=== PATIENT | male | born 1950 | race Caucasian/White ===

== ENCOUNTER 2016-09-17 09:33 | Day surgery (SDC) | payer BC, MEDICARE ==
[2016-09-06 09:17] VITALS: BMI 30.5
[~2016-09-17 09:33] MED LIST: LACTATED RINGERS 1,000 ML IV SCH
[2016-09-17 09:47] VITALS: RESP 16; TEMP 98.5
[2016-09-17] MEDS ORDERED: LIDOCAINE 1% 20 ML VIAL (10MG/ML) FOR IV START INTRADERMA ONE (09:58)
[2016-09-17] MEDS ORDERED: PROPOFOL 10 MG/ML 20 ML VIAL IV ONE (10:48)
--- NOTE | 2016-09-17 11:09 | P.PCN ---
Date of Procedure: 09/17/16 Procedure(s) Performed: BRIEF HISTORY: Patient is a 65-year-old pleasant white male, scheduled for an elective colonoscopy as a part of screening for colorectal neoplasia. PROCEDURE PERFORMED: Colonoscopy with biopsy. PREOPERATIVE DIAGNOSIS: Screening for colon cancer. IV sedation per Anesthesia. PROCEDURE: After informed consent was obtained, the patient, was brought into the endoscopy unit. IV sedation was administered by Anesthesia under continuous monitoring. Digital rectal examination was normal. Initially the Olympus CF- 160 flexible video colonoscope was then inserted in the rectum, gradually advanced into the cecum without any difficulty. Careful examination was performed as the scope was gradually being withdrawn. Ileocecal valve and the appendiceal orifice were visualized and appeared normal. Prep was excellent. Mucosa of the cecum, ascending colon, transverse colon, descending colon, sigmoid colon, and rectum appeared normal. In the proximal rectum there was a part of that was removed by biopsy. Scattered sigmoid diverticulosis seen. Retroflexion was performed in the rectum and no lesions were seen. The patient tolerated the procedure well. IMPRESSION: 5 mm proximal rectal polyp status post removal by biopsy. Sigmoid diverticulosis RECOMMENDATIONS: Findings of this examination were discussed with the patient as well as his family. he was advised to follow with the biopsy results. If the biopsy shows a tubular adenoma he can have a repeat colonoscopy in 5 years.
[2016-09-17 11:43] VITALS: BP 138/80; PULSE 80
== END 2016-09-17 11:53 | disposition home or self-care (01) ==
LOC: ORWHC2ENDO 09:33
PROVIDERS: ATTEND Internal Medicine Gastroenterology
DX: Z12.11 Encounter for screening for malignant neoplasm of colon (principal); K57.30 Diverticulosis of large intestine without perforation or abscess without bleeding; K62.1 Rectal polyp; I10 Essential (primary) hypertension; E78.5 Hyperlipidemia, unspecified; Z86.711 Personal history of pulmonary embolism; M54.10 Radiculopathy, site unspecified; K21.9 Gastro-esophageal reflux disease without esophagitis; Z79.82 Long term (current) use of aspirin; Z79.02 Long term (current) use of antithrombotics/antiplatelets; Z79.891 Long term (current) use of opiate analgesic; Z79.899 Other long term (current) drug therapy; Z88.1 Allergy status to other antibiotic agents; Z88.0 Allergy status to penicillin; Z88.2 Allergy status to sulfonamides; Z87.891 Personal history of nicotine dependence
CPT/HCPCS: 88305; 45380; J2704

== ENCOUNTER 2021-05-05 12:11 | Inpatient (IN) | payer MEDICARE, OTHER ==
[2021-05-05] MEDS ORDERED: CEFEPIME 1 GM in SODIUM CHLORIDE 0.9% 50 ML IVPB STA (14:33)
[2021-05-05] MEDS ORDERED: VANCOMYCIN IV PER PHARMACY 1 EACH MISC MISCELLANE PRN (14:33)
[2021-05-05] MEDS: SODIUM CHLORIDE 0.9% 1,000 ML IV STA (14:55)
[2021-05-05 14:58] LABS: Basophils % (A) 1 %; Eosinophils # (A) 0.1 k/uL (0-0.7); Eosinophils % (A) 1 %; HCT 39.6 % (39.0-53.0); HGB 13.3 gm/dL (13.0-17.5); Lymphocytes # (A) 1.8 k/uL (1.0-4.8); Lymphocytes % (A) 23 %; MCH 31.4 pg (25.0-35.0); MCHC 33.6 g/dL (31.0-37.0); MCV 93.4 fL (80.0-100.0); Mean Platelet Volume 7.3; Monocytes # (A) 0.4 k/uL (0-1.0); Monocytes % (A) 5 %; Neutrophils # (A) 5.6 k/uL (1.3-7.7); Neutrophils % (A) 70 %; Platelet Count 401 k/uL (150-450); RBC 4.25 m/uL (4.30-5.90); RDW 13.3 % (11.5-15.5)
[2021-05-05 15:10] LABS: African American GFR (CKD) >90 (>60 ml/min/1.73 sqM); Anion Gap 9 mmol/L; Blood Urea Nitrogen 22 mg/dL (9-20); Carbon Dioxide 22 mmol/L (22-30); Chloride 109 mmol/L (98-107); Glucose 120 mg/dL (74-99); Non-African American GFR(CKD) >90 (>60 ml/min/1.73 sqM); Potassium 4.1 mmol/L (3.5-5.1); Sodium 140 mmol/L (137-145)
[2021-05-05] MEDS: VANCOMYCIN 1,750 MG in SODIUM CHLORIDE 0.9% 500 ML 500 ML IVPB STA ×2 (15:25→18:05)
--- NOTE | 2021-05-05 15:44 | XR ---
EXAMINATION TYPE: XR foot complete RT DATE OF EXAM: 05/05/2021 COMPARISON: Correlation old MRI 04/20/2013 HISTORY: 70-year-old male for pain, rule out infection TECHNIQUE: 3 views FINDINGS: There is chronic bone loss of the posterior to mid calcaneus and underlying extensive degen erative change within the hindfoot. Degenerative change at the tibiotalar joint. Generalized soft tis laura swelling throughout including the forefoot and midfoot were severe swelling is present. Surgical clips posterior aspect of the distal leg. No lytic destruction identified in the forefoot and midfoot . IMPRESSION: 1. Loss of the posterior to mid calcaneus appears largely chronic and was present back on the patient 's 04/20/2013 MRI. Further clinical correlation will be needed for osteomyelitis here especially in t he setting of a soft tissue ulcer. No acute appearing efrain lytic destruction is seen here. 2. Severe forefoot and midfoot soft tissue swelling could represent cellulitis. 3. If persistent clinical concern, consider MRI.
--- NOTE | 2021-05-05 15:54 | ED ---
General Adult HPI - General Chief complaint: Extremity Problem,Nontraumatic Stated complaint: infected foot/leg Time Seen by Provider: 05/05/21 14:25 Source: patient, RN notes reviewed Mode of arrival: wheelchair Limitations: no limitations - History of Present Illness Initial comments: Patient 70-year-old male presented to the emergency room today with chief complaint of infection to the right foot. Patient does admit that he's had a chronic infection to this area after an injury over 30 years ago. Patient does admit that more recently a new infection started. He is been followed the family doctor. Was placed on Keflex and doxycycline. Patient states that he follow-up at the family physician today was directed here to the emergency room for IV antibiotics as seems to be getting worse. Patient denies any other complaints or any other symptoms at this time. - Related Data Home Medications Medication Instructions Recorded Confirmed Atorvastatin [Lipitor] 20 mg PO MOWEFR 09/20/13 11/29/16 Multivitamin [Multivitamins] 1 each PO DAILY 09/20/13 11/29/16 amLODIPine BESYLATE [Norvasc] 10 mg PO DAILY 09/20/13 11/29/16 Aspirin 325 mg PO DAILY 12/05/14 11/29/16 DULoxetine HCL [Cymbalta] 60 mg PO DAILY 12/05/14 11/29/16 lisinopriL [Prinivil] 20 mg PO DAILY 12/05/14 11/29/16 Pantoprazole Sodium 40 mg PO DAILY 03/05/16 11/29/16 Gabapentin [Neurontin] 300 mg PO DAILY 09/06/16 11/29/16 Previous Rx's Medication Instructions Recorded Clopidogrel [Plavix] 75 mg PO DAILY #30 tab 12/11/14 Allergies Allergy/AdvReac Type Severity Reaction Status Date / Time Penicillins Allergy Rash/Hives Verified 05/05/21 13:08 sulfamethoxazole Allergy PALPITATION Verified 05/05/21 13:08 [From Bactrim] S trimethoprim [From Bactrim] Allergy PALPITATION Verified 05/05/21 13:08 S Review of Systems ROS Statement: Those systems with pertinent positive or pertinent negative responses have been documented in the HPI. ROS Other: All systems not noted in ROS Statement are negative. Past Medical History Past Medical History: Cancer, Deep Vein Thrombosis (DVT), GERD/Reflux, Hyperlipidemia, Hypertension, Pulmonary Embolus (PE), Skin Disorder Additional Past Medical History / Comment(s): WOUND ON RT HEEL, neuropathy rt lower leg, basal cell skin cancer removed from back, hiatal hernia. chronic constipation, History of Any Multi-Drug Resistant Organisms: None Reported Past Surgical History: Back Surgery, Heart Catheterization, Orthopedic Surgery Additional Past Surgical History / Comment(s): back sx-fusion and selena placement/later removed, stent to rt groin, avelino foot sx and rt foot had problem with bone infection(at heel area) flap graft was done(graft site avelino thighs) was rejected then 3RD graft (from rt calf) was successful. rt knee cap sx, stent to left subclavian Past Anesthesia/Blood Transfusion Reactions: No Reported Reaction Additional Past Anesthesia/Blood Transfusion Reaction / Comment(s): . Past Psychological History: No Psychological Hx Reported Smoking Status: Former smoker Past Alcohol Use History: Occasional Past Drug Use History: Marijuana - Past Family History Mother Family Medical History: Osteoarthritis (OA) Additional Family Medical History / Comment(s): BACK PROBLEMS, ALZHEIMER'S Father Family Medical History: Cancer, Coronary Artery Disease (CAD), Thyroid Disorder General Exam - General Exam Comments Initial Comments: General: The patient is awake and alert, in no distress, and does not appear acutely ill. Eye: There is normal conjunctiva bilaterally. No signs of icterus. Ears, nose, mouth and throat: There are moist mucous membranes and no oral lesions. Neck: The neck is supple, there is no tenderness or JVD. Cardiovascular: There is a regular rate and rhythm. No murmur, rub or gallop is appreciated. Respiratory: Lungs are clear to auscultation, respirations are non-labored, breath sounds are equal. No wheezes, stridor, rales, or rhonchi. Musculoskeletal: Normal ROM, no tenderness. Strength 5/5. Sensation intact. Pulses equal bilaterally 2+. Neurological: A&O x 3. CN II-XII intact, There are no obvious motor or sensory deficits. Coordination appears grossly intact. Speech is normal. Skin: Patient's wound was recently dressed at his office. Psychiatric: Cooperative, appropriate mood & affect, normal judgment. Limitations: no limitations Course Vital Signs 05/05/21 13:02 Temperature 98.4 F Pulse Rate 68 Respiratory 18 Rate Blood Pressure 126/73 O2 Sat by Pulse 98 Oximetry Medical Decision Making - Medical Decision Making Patient will be admitted to the hospital. He was started on cefepime, vancomycin here in emergency room. He still outpatient treatment. Case was discussed with attending physician Dr. Roth who will admit the patient. He recommends consult to infectious disease and bone scan. - Lab Data Result diagrams: 05/05/21 14:47 05/05/21 14:47 Lab Results 05/05/21 05/05/21 05/05/21 Range/Units 14:47 14:47 14:47 WBC 8.0 (3.8-10.6) k/uL RBC 4.25 L (4.30-5.90) m/uL Hgb 13.3 (13.0-17.5) gm/dL Hct 39.6 (39.0-53.0) % MCV 93.4 (80.0-100.0) fL MCH 31.4 (25.0-35.0) pg MCHC 33.6 (31.0-37.0) g/dL RDW 13.3 (11.5-15.5) % Plt Count 401 (150-450) k/uL MPV 7.3 Neutrophils % 70 % Lymphocytes % 23 % Monocytes % 5 % Eosinophils % 1 % Basophils % 1 % Neutrophils # 5.6 (1.3-7.7) k/uL Lymphocytes # 1.8 (1.0-4.8) k/uL Monocytes # 0.4 (0-1.0) k/uL Eosinophils # 0.1 (0-0.7) k/uL Basophils # 0.0 (0-0.2) k/uL Sodium 140 (137-145) mmol/L Potassium 4.1 (3.5-5.1) mmol/L Chloride 109 H (98-107) mmol/L Carbon Dioxide 22 (22-30) mmol/L Anion Gap 9 mmol/L BUN 22 H (9-20) mg/dL Creatinine 0.83 (0.66-1.25) mg/dL Est GFR (CKD-EPI)AfAm >90 (>60 ml/min/1.73 sqM) Est GFR (CKD-EPI)NonAf >90 (>60 ml/min/1.73 sqM) Glucose 120 H (74-99) mg/dL Plasma Lactic Acid Julio C 1.2 (0.7-2.0) mmol/L Calcium 9.0 (8.4-10.2) mg/dL Disposition Clinical Impression: Cellulitis, Failure of outpatient treatment Disposition: ADMITTED IP TO THIS [facility] Condition: Stable Referrals: Vicky Singh III, MD [Primary Care Provider] - 1-2 days Time of Disposition: 16:00
[2021-05-05] MEDS ORDERED: SODIUM CHLORIDE 0.9% 1,000 ML IV ONE (16:00)
--- NOTE | 2021-05-05 16:56 | US ---
EXAMINATION TYPE: US venous doppler duplex LE RT DATE OF EXAM: 05/05/2021 4:33 PM COMPARISON: 07/13/2013 duplex CLINICAL HISTORY: DVT. Right leg pain, redness, and swelling SIDE PERFORMED: Right TECHNIQUE: The lower extremity deep venous system is examined utilizing real time linear array sonog tone with graded compression, doppler sonography and color-flow sonography. VESSELS IMAGED: Common Femoral Vein Deep Femoral Vein Greater Saphenous Vein * Femoral Vein Popliteal Vein Small Saphenous Vein * Proximal Calf Veins (* superficial vessels) Right Leg: Negative for DVT IMPRESSION: Grayscale, color doppler, spectral doppler imaging performed of the deep veins of the lo wer extremities. There is normal flow, compressibility, vascular waveforms.
[2021-05-05] MEDS ORDERED: HYDROcodone/APAP 5-325MG 1 EACH TAB PO PRN (17:36)
--- NOTE | 2021-05-05 18:28 | HP ---
HISTORY AND PHYSICAL DATE OF SERVICE: 05/05/2021. CHIEF COMPLAINT: Right foot wound and infection. HISTORY OF PRESENT ILLNESS: This 70-year-old gentleman with a past medical history of multiple medical problems, including DVT, history of GERD, hypertension, hyperlipidemia, history of pulmonary embolism, being followed by Dr. Singh in the outpatient setting, also had a nonhealing wound on the right heel. The patient apparently had a skin graft and other procedures in [facility], but currently the patient is also complaining of some discharge and pain from the foot for the last several days. Patient has been treated in the outpatient setting by Dr. Singh. The patient also was placed on Keflex and then subsequently doxycycline. Because of lack of improvement, Dr. Singh recommended that the patient be admitted. But because of lack of inpatient bedside, the patient was being routed to the emergency room at this time. There is no history of any fever, rigors or chills. No history of headache, loss of consciousness, seizures. The patient has some neuropathy on that leg. PAST MEDICAL HISTORY: History of DVT, history of GERD, hypertension, hyperlipidemia, history of pulmonary embolism, history of wound on the right history of back surgery, DJD. HOME MEDICATIONS: Prinivil, Norvasc, Protonix, multivitamins, Neurontin, Cymbalta, Plavix. Lipitor, aspirin. Doses are reviewed. ALLERGIES: PENICILLIN AND BACTRIM. FAMILY HISTORY: History of DJD, history of back problems and dementia. SOCIAL HISTORY: Previous history of smoking. No history of alcohol intake. REVIEW OF SYSTEMS: ENT: No diminished hearing. No diminished vision. CARDIOVASCULAR SYSTEM: No angina, palpitations. RESPIRATORY SYSTEM: No cough, hemoptysis. GI: As mentioned earlier. : No dysuria. NERVOUS SYSTEM: No numbness, weakness. ALLERGY/IMMUNOLOGY: No asthma or hay fever. MUSCULOSKELETAL: As mentioned earlier. HEMATOLOGY/ONCOLOGY: As mentioned earlier. ENDOCRINE: As mentioned earlier. CONSTITUTIONAL: As mentioned earlier. DERMATOLOGY: Negative. RHEUMATOLOGY: Negative. PSYCHIATRY: As mentioned earlier. PHYSICAL EXAMINATION: Patient is alert, oriented x3. Pulse is 70, blood pressure 124/47, respiration 18, temperature 98.4, pulse ox 98% on room air. HEENT: Conjunctivae normal. Oral mucosa moist. NECK: No jugular venous distention. No carotid bruit. No lymph node enlargement. CARDIOVASCULAR: S1, S2 muffled. RESPIRATION: Breath sounds diminished at the bases. No rhonchi. No crackles. ABDOMEN: Soft, non-tender. No mass palpable. LEGS: Right leg infection and some tenderness and some discharge also present in the right ankle area. NERVOUS SYSTEM: Diffusely weak. LYMPHATICS: No lymph node palpable in neck, axillae or groin. SKIN: No ulcer, rash, bleeding. JOINTS: No active deforming arthropathy. LABS: WBC 8, hemoglobin 13.3, sodium 142, potassium 4.1. ASSESSMENT: 1. Acute on chronic right foot infection with cellulitis with failure of outpatient treatment. 2. Rule out osteomyelitis. 3. History of chronic right foot wound and skin graft. 4. History of deep vein thrombosis. 5. Gastroesophageal reflux disease. 6. Hypertension. 7. Hyperlipidemia. 8. History of pulmonary embolism. 9. History of peripheral neuropathy. 10.History of hiatal hernia. 11.History of chronic constipation. 12.History of back surgery. 13.Remote history of nicotine dependence. 14.Obesity, body mass index of 31.5. RECOMMENDATIONS AND DISCUSSION: In this 70-year-old gentleman who presented with multiple complex medical issues, at this time we will monitor the patient closely, continue the current medications, continue symptomatic treatment. I would recommend empiric antibiotics, infectious disease evaluation. Obtain cultures. Bone scan. Otherwise, guarded prognosis because of multiple complex medical issues. Further recommendations to follow. A copy of this dictation is being forwarded to Dr. Singh, who is the primary physician. Will resume the home medications. Also DVT prophylaxis. Ultrasound of the leg also will be requested on the right side. MMODL / IJN: [id number] / [facility]
[2021-05-05] MEDS: ENOXAPARIN 40 MG/0.4 ML SYRINGE SQ SCH (22:49)
[2021-05-05] MEDS: PANTOPRAZOLE 40 MG TABLET PO SCH (22:49)
[2021-05-05] MEDS: HYDROmorphone 0.5 MG/0.5 ML SYRINGE IVP PRN (22:50)
[2021-05-06] MEDS: CEFEPIME 2 GM in SODIUM CHLORIDE 0.9% 100 ML IVPB SCH ×3 (00:48→18:32)
[2021-05-06] MEDS: SODIUM CHLORIDE 0.9% 1,000 ML IV STA (02:30)
[2021-05-06 04:27] LABS: African American GFR (CKD) >90 (>60 ml/min/1.73 sqM); Non-African American GFR(CKD) >90 (>60 ml/min/1.73 sqM)
[2021-05-06] MEDS: VANCOMYCIN 1,750 MG in SODIUM CHLORIDE 0.9% 500 ML 500 ML IVPB SCH ×2 (05:39→15:15)
[2021-05-06] MEDS: HYDROmorphone 0.5 MG/0.5 ML SYRINGE IVP PRN (05:40)
[2021-05-06] MEDS: PANTOPRAZOLE 40 MG TABLET PO SCH (09:10)
[2021-05-06] MEDS: ENOXAPARIN 40 MG/0.4 ML SYRINGE SQ SCH (10:36)
--- NOTE | 2021-05-06 14:10 | NM ---
EXAMINATION TYPE: NM bone 3 phase DATE OF EXAM: 05/06/2021 COMPARISON: X-ray 05/05/2021 HISTORY: Swelling Triple phase bone scintigraphy was performed following the injection of 23.1 mCi Tc 99m MDP. Immedia te images and 5.5 hours post injection images acquired. FINDINGS: There is increase of flow to the right ankle and foot. Particular attention to the soft tissues of th e right heel. Delayed images demonstrate blood flow overlying the right calcaneal region. Abnormal uptake is seen involving the ankles and feet and knees bilaterally. IMPRESSION: Findings are most typical of cellulitis. Correlate clinically.
[2021-05-06] MEDS ORDERED: HYDROmorphone 0.5 MG/0.5 ML SYRINGE IVP PRN (15:30)
[2021-05-06] MEDS: HYDROcodone/APAP 7.5-325MG 1 EACH TAB PO PRN (15:47)
--- NOTE | 2021-05-07 01:21 | P.PN ---
Subjective Progress Note Date: 05/06/21 This is a 70-year-old male who was recently admitted for right heel pain and increasing redness and drainage and is being closely monitored. Patient underwent bone scan today which is consistent with cellulitis. Patient is currently on IV cefepime and vancomycin and infectious disease is following. Patient continues to have right foot discomfort and will adjust pain medications. Patient preliminary cultures showing multiple organisms and will await finalized cultures. Patient denies any chest pain or shortness of breath. Patient is afebrile. Review of systems: Constitutional: No reports of fatigue, fever, or chills Cardiovascular: No reports of chest pain or palpitations Respiratory: No reports of shortness of breath or cough GI: No reports of nausea, vomiting, or diarrhea : No reports of dysuria or retention Neurovascular: No reports of weakness or numbness, reports right foot pain All medications have been reviewed Active Medications Hydrocodone Bitart/Acetaminophen (Hydrocodone/Apap 5-325mg 1 Each Tab) 1 each PO Q6HR PRN PRN Reason: Pain Last Admin: 05/06/21 09:10 Dose: 1 each Documented by: Enoxaparin Sodium (Enoxaparin 40 Mg/0.4 Ml Syringe) 40 mg SQ DAILY [facility] Last Admin: 05/06/21 10:36 Dose: 40 mg Documented by: Hydromorphone HCl (Hydromorphone 0.5 Mg/0.5 Ml Syringe) 0.5 mg IVP Q6HR PRN PRN Reason: Severe Pain Last Admin: 05/06/21 05:40 Dose: 0.5 mg Documented by: Vancomycin HCl 1,750 mg/ (Sodium Chloride) 500 mls @ 167 mls/hr IVPB Q12H [facility] Last Admin: 05/06/21 15:15 Dose: 167 mls/hr Documented by: Cefepime HCl 2 gm/ Sodium (Chloride) 100 mls @ 25 mls/hr IVPB Q8HR [facility] Last Admin: 05/06/21 09:11 Dose: 25 mls/hr Documented by: Miscellaneous Information (Vancomycin Trough Due 1 Each Misc) 0 each MISCELLANE DIRECTED ONE Stop: 05/07/21 14:01 Pantoprazole Sodium (Pantoprazole 40 Mg Tablet) 40 mg PO AC-[id number] [facility] Last Admin: 05/06/21 09:10 Dose: 40 mg Documented by: Physical Exam: Gen: This is a 70-year-old male who is awake, alert and oriented 3, well- developed, well-nourished. Temp is 98.2 F, pulse is 87, respirations are 18, blood pressure is 149/82, oxygen saturation is 95% on room air HEENT: Head is atraumatic, normocephalic. Pupils equal, round. Sclerae is anicteric. NECK: Supple. No JVD. No lymphadenopathy. No thyromegaly. LUNGS: Diminished breath sounds bilaterally with no wheezing or rhonchi noted. No intercostal retractions. HEART: S1, S2 are muffled ABDOMEN: Soft. Obese. Bowel sounds are present. No masses. No tenderness. EXTREMITIES: No pedal edema. No calf tenderness. NEUROLOGICAL: Patient is awake, alert and oriented x3. Cranial nerves 2 through 12 are grossly intact. Assessment: Acute on chronic right foot infection with cellulitis with failed outpatient treatment Rule out osteomyelitis History of chronic right foot wound and skin graft History of deep vein thrombosis Gastroesophageal reflux disease hypertension hyperlipidemia History of pulmonary embolism History of peripheral neuropathy History of hiatal hernia History of chronic constipation History of back surgery Remote history of nicotine dependence Obesity with a BMI of 31.5 Plan: Recommend to continue with current medications and management. Pain management and will adjust medications as patient continues to rate his pain as severe. Patient is currently maintained on IV vancomycin and cefepime. Infectious disease following. Awaiting cultures to finalize. Patient underwent bone scan which is consistent with cellulitis. Venous doppler of the right lower extremity is negative for DVT. Continue local care. Encourage increased activity as tolerated. Will repeat am labs and continue to monitor closely. Due to multiple complex medical issues, prognosis is guarded. Further recommendations to follow based on the clinical course of the patient. Objective - Vital Signs Vital signs: Vital Signs Temp 98.2 F 05/06/21 08:36 Pulse 87 05/06/21 08:36 Resp 18 05/06/21 08:36 BP 149/82 05/06/21 08:36 Pulse Ox 95 05/06/21 08:36 Intake & Output 05/05/21 05/06/21 05/06/21 18:59 06:59 18:59 Intake Total 625 Balance 625 Weight 105.233 kg 105.233 kg Intake: Intake, IV Titration 625 Amount Sodium Chloride 0.9% 1, 400 000 ml @ 100 mls/hr IV . Q10H ONE Rx#:[id number] Sodium Chloride 0.9% 1, 225 000 ml @ 75 mls/hr IV . [id number] STA Rx#:[id number] Other: Voiding Method Toilet # Voids 2 1 - Labs CBC & Chem 7: 05/05/21 14:47 05/06/21 03:19 Labs: Abnormal Lab Results - Last 24 Hours (Table) 05/05/21 05/05/21 Range/Units 14:47 14:47 RBC 4.25 L (4.30-5.90) m/uL Chloride 109 H (98-107) mmol/L BUN 22 H (9-20) mg/dL Glucose 120 H (74-99) mg/dL Microbiology - Last 24 Hours (Table) 05/05/21 14:47 Gram Stain - Preliminary Foot - Right Wound Culture - Preliminary
[2021-05-07] MEDS: VANCOMYCIN 1,750 MG in SODIUM CHLORIDE 0.9% 500 ML 500 ML IVPB SCH ×2 (02:24→15:45)
[2021-05-07] MEDS: CEFEPIME 2 GM in SODIUM CHLORIDE 0.9% 100 ML IVPB SCH ×3 (02:25→20:01)
[2021-05-07 05:33] LABS: Basophils % (A) 1 %; Eosinophils # (A) 0.1 k/uL (0-0.7); Eosinophils % (A) 2 %; HCT 38.2 % (39.0-53.0); HGB 12.5 gm/dL (13.0-17.5); Lymphocytes # (A) 1.3 k/uL (1.0-4.8); Lymphocytes % (A) 22 %; MCH 30.5 pg (25.0-35.0); MCHC 32.8 g/dL (31.0-37.0); MCV 92.9 fL (80.0-100.0); Mean Platelet Volume 7.1; Monocytes # (A) 0.5 k/uL (0-1.0); Monocytes % (A) 8 %; Neutrophils # (A) 3.8 k/uL (1.3-7.7); Neutrophils % (A) 66 %; Platelet Count 378 k/uL (150-450); RBC 4.11 m/uL (4.30-5.90); RDW 12.4 % (11.5-15.5); WBC 5.8 k/uL (3.8-10.6)
[2021-05-07 05:43] LABS: African American GFR (CKD) >90 (>60 ml/min/1.73 sqM); Anion Gap 6 mmol/L; Blood Urea Nitrogen 14 mg/dL (9-20); Calcium 8.8 mg/dL (8.4-10.2); Carbon Dioxide 24 mmol/L (22-30); Chloride 109 mmol/L (98-107); Glucose 108 mg/dL (74-99); Non-African American GFR(CKD) 89 (>60 ml/min/1.73 sqM); Potassium 4.4 mmol/L (3.5-5.1); Sodium 139 mmol/L (137-145)
[2021-05-07] MEDS: ENOXAPARIN 40 MG/0.4 ML SYRINGE SQ SCH (08:47)
[2021-05-07] MEDS: PANTOPRAZOLE 40 MG TABLET PO SCH (08:48)
--- NOTE | 2021-05-07 09:03 | P.CONS ---
History of Present Illness - Reason for Consult Consult date: 05/06/21 right leg cellulitis Requesting physician: Roseanna Roth - Chief Complaint right leg swelling and redness x days - History of Present Illness History of present illness : Patient is 70-year-old male with a past medical history significant for traumatic injury to the right heel many years ago and this patient did have a history of recurrent infection to the right heel area patient started having a problem with the right heel small wound subsequently swelling or redness to the heel and the leg area that has been going on for more than a week and 10 days and has been treated in the outpatient setting with oral Keflex followed by doxycycline without improvement as the patient was sent to the ER for IV antibiotic therapy patient denies having any history of any trauma has been complaining of diffuse swelling and redness to the heel and the leg area patient did have mild dull aching pain 5-6 out of 10 and no radiation patient denies high-grade fever or chills did have a normal white count on presentation the hospital kidney function was normal local cultu res obtained which are currently pending blood cultures are pending as well patient did have x-rays of the foot loss of the posterior to mid calcaneus appears largely chronic no acute fracture or lytic destruction is seen radiology was recommending an MRI a bone scan was done which has been cellulitis, infectious he was consulted for management of antibiotic therapy patient did mention improvement in the swelling redness still has been started on IV antibiotic therapy Review of system: CONSTITUTIONAL: Positive for weakness denies high-grade fever. EYES: No complaint. ENT: No complaint. RESPIRATORY: No complaint. CARDIOVASCULAR: No complaint. GENITOURINARY: No complaint. GASTROINTESTINAL: No complaint. MUSCULOSKELETAL as per history of present illness. INTEGUMENTARY: No complaint. PSYCHOLOGIC: No complaint. ENDOCRINE: No complaint. NEUROLOGIC: No complaint. Past medical history : Reviewed, documented below Past surgical history : Reviewed, documented below Social history: Reviewed, documented below Medications: Reviewed, as documented below EXAMINATION: Vital sigans= Reviewed and documented below GENERAL DESCRIPTION: Elderly male lying in bed, no distress. No tachypnea or accessory muscle of respiration use. HEENT: Shows Pallor , no scleral icterus. Oral mucous membrane is dry. NECK: Trachea central, no thyromegaly. LUNGS: Unlabored breathing. Clear to auscultation anteriorly. No wheeze or crackle. HEART: S1, S2, regular rate and rhythm. ABDOMEN: Soft, no tenderness , guarding or rigidity EXTREMITIES: Right heel did have chronic deformity from superficial ulceration swelling redness of the right lower extremity which is warm to touch. SKIN: No rash, no masses palpable. NEUROLOGICAL: The patient is awake, alert, oriented x3, mood and affect normal. LABS AND RADIOLOGY: Reviewed results see below Assessment : Patient presented to hospital with right lower extremity cellulitis in this patient failed to respond to the outpatient oral Keflex and doxycycline therapy and did have multiple antibiotic allergies seem to be clinically responding to the cefepime and vancomycin both skin is suspicious for cellulitis and there is no evidence of any lytic lesion on the x-ray, cultures are currently pending Plan: 1-patient to continue with the vancomycin and cefepime 2 the patient is clinically responded 2-discharge antibiotic on the basis of the cultures We will follow on clinical condition and cultures to further adjust medication if needed Thank you for this consultation we will follow the patient along with you Past Medical History Past Medical History: Cancer, Deep Vein Thrombosis (DVT), Eye Disorder, GERD/Reflux, Hyperlipidemia, Hypertension, Osteoarthritis (OA), Pulmonary Embolus (PE), Skin Disorder, Vascular Disorder Additional Past Medical History / Comment(s): Chronic R heel wound/infection, neuropathy R lower leg, PAD, bilateral leg DVTs, bilateral lung PEs, hiatal hernia, chronic constipation, diverticular disease, benign colon polyps, chronic low back pain/past sciatica mostly on R side, starting of cataracts bilaterally. History of Any Multi-Drug Resistant Organisms: None Reported Past Surgical History: Back Surgery, Heart Catheterization, Orthopedic Surgery Additional Past Surgical History / Comment(s): Skin cancer removals, lumbar fusion/rods then rods removed, laminectomy lumbar spine, R patella fracture with surgery, bilateral heel bone removals-1/2 L heelbone removed and most of R heel bone removed, R foot flap grafts x 3 d/t rejections/successful graft with donor site R calf, bilateral feet numerous I&Ds, aortic arch angiogram/stent to L subclavian, R groin stent, colonoscopies/benign polypectomies. Past Anesthesia/Blood Transfusion Reactions: No Reported Reaction Additional Past Anesthesia/Blood Transfusion Reaction / Comm: . Smoking Status: Former smoker - Past Family History Mother Family Medical History: Osteoarthritis (OA) Additional Family Medical History / Comment(s): BACK PROBLEMS, ALZHEIMER'S Father Family Medical History: Cancer, Coronary Artery Disease (CAD), Thyroid Disorder Medications and Allergies Home Medications Medication Instructions Recorded Confirmed Type Atorvastatin [Lipitor] 20 mg PO DAILY 09/20/13 05/05/21 History amLODIPine BESYLATE [Norvasc] 10 mg PO DAILY 09/20/13 05/05/21 History Aspirin 325 mg PO DAILY 12/05/14 05/05/21 History lisinopriL [Prinivil] 20 mg PO DAILY 12/05/14 05/05/21 History Pantoprazole Sodium 40 mg PO DAILY 03/05/16 05/05/21 History Gabapentin [Neurontin] 300 mg PO TID 09/06/16 05/05/21 History Cephalexin [Keflex] 500 mg PO QID 05/05/21 05/05/21 History Doxycycline Hyclate 100 mg PO BID 05/05/21 05/05/21 History Multivit-Min/FA/Lycopen/Lutein 1 tab PO DAILY 05/05/21 05/05/21 History [Centrum Silver Men Tablet] Naproxen Sodium [Aleve] 220 mg PO Q12H PRN 05/05/21 05/05/21 History oxyCODONE-APAP 10-325MG [Percocet 1 tab PO TID PRN 05/05/21 05/05/21 History 10-325 mg] polyethylene glycoL 3350 [Miralax] 17 gm PO DAILY PRN 05/05/21 05/05/21 History Allergies Allergy/AdvReac Type Severity Reaction Status Date / Time Penicillins Allergy Rash/Hives Verified 05/05/21 17:46 sulfamethoxazole Allergy PALPITATION Verified 05/05/21 17:46 [From Bactrim] S trimethoprim [From Bactrim] Allergy PALPITATION Verified 05/05/21 17:46 S Physical Exam Vitals: Vital Signs Temp Pulse Pulse Resp BP BP Pulse Ox 05/06/21 08:36 98.2 F 87 18 149/82 95 05/06/21 08:00 76 05/06/21 02:00 98.7 F 67 16 138/77 99 05/05/21 22:08 98.3 F 65 18 130/70 98 05/05/21 20:00 18 05/05/21 15:07 70 18 124/66 97 Intake and Output 12/14/21 12/15/21 12/15/21 22:59 06:59 14:59 Intake Total 625 Balance 625 Intake: Intake, IV Titration 625 Amount Sodium Chloride 0.9% 1, 400 000 ml @ 100 mls/hr IV . Q10H [facility] Rx#:[id number] Sodium Chloride 0.9% 1, 225 000 ml @ 75 mls/hr IV . [id number] [facility] Rx#:[id number] Other: Voiding Method Toilet # Voids 2 1 Weight 105.233 kg Results CBC & Chem 7: 05/07/21 04:55 05/07/21 04:55 Labs: Abnormal Lab Results - Last 24 Hours (Table) 05/05/21 05/05/21 Range/Units 14:47 14:47 RBC 4.25 L (4.30-5.90) m/uL Chloride 109 H (98-107) mmol/L BUN 22 H (9-20) mg/dL Glucose 120 H (74-99) mg/dL Microbiology - Last 24 Hours (Table) 05/05/21 14:47 Gram Stain - Preliminary Foot - Right Wound Culture - Preliminary
[2021-05-07] MEDS ORDERED: VANCOMYCIN TROUGH DUE 1 EACH MISC MISCELLANE ONE (14:00)
--- NOTE | 2021-05-07 17:41 | P.PN ---
Subjective Progress Note Date: 05/07/21 This is a 70-year-old male who was recently admitted for right heel pain and increasing redness and drainage and is being closely monitored. Patient underwent bone scan today which is consistent with cellulitis. Patient is currently on IV cefepime and vancomycin and infectious disease is following. Patient continues to have right foot discomfort and will adjust pain medications. Patient preliminary cultures showing multiple organisms and will await finalized cultures. Patient denies any chest pain or shortness of breath. Patient is afebrile. 2020 Patient is seen in follow-up this morning and being closely monitored. Patient continues on IV cefepime along with vancomycin and infectious disease is following closely. Blood cultures remain negative and preliminary wound culture showing few budding yeast along with moderate gram by positive cocci and multiple morphologies present and awaiting for finalization determine discharge antibiotics. Patient continues with right lower extremity redness and swelling and bandadge is dry and intact. Patient states the redness and swelling has decreased and patient currently has the right lower extremity elevated on a pillow. Patient to continue to elevate while at rest. Patient denies any chest pain, shortness of breath, or palpitations. Patient is afebrile. Patient tolerating diet with no reports of nausea or vomiting noted. Patient states he has had IV antibiotic therapy in the outpatient setting previously and follows with the wound care center and will discuss with case management along with infectious disease about discharge planning and if patient will be requiring IV antibiotic therapy. Labs: WBC is 5.8, hemoglobin is 12.5, platelets are 378, sodium is 139, potassium 4.4, BUN is 14, creatinine is 0.86, calcium is 8.8 Vanco trough is 11.9. Review of systems: Constitutional: No reports of fatigue, fever, or chills Cardiovascular: No reports of chest pain or palpitations Respiratory: No reports of shortness of breath or cough GI: No reports of nausea, vomiting, or diarrhea : No reports of dysuria or retention Neurovascular: No reports of weakness or numbness, reports right foot pain All medications have been reviewed Active Medications Hydrocodone Bitart/Acetaminophen (Hydrocodone/Apap 7.5-325mg 1 Each Tab) 1 each PO Q6HR PRN PRN Reason: Moderate Pain Last Admin: 05/06/21 15:47 Dose: 1 each Documented by: Enoxaparin Sodium (Enoxaparin 40 Mg/0.4 Ml Syringe) 40 mg SQ DAILY [facility] Last Admin: 05/07/21 08:47 Dose: 40 mg Documented by: Hydromorphone HCl (Hydromorphone 0.5 Mg/0.5 Ml Syringe) 0.5 mg IVP Q4H PRN PRN Reason: Severe Pain Vancomycin HCl 1,750 mg/ (Sodium Chloride) 500 mls @ 167 mls/hr IVPB Q12H [facility] Last Admin: 05/07/21 15:45 Dose: 167 mls/hr Documented by: Cefepime HCl 2 gm/ Sodium (Chloride) 100 mls @ 25 mls/hr IVPB Q8H [facility] Last Admin: 05/07/21 08:48 Dose: 25 mls/hr Documented by: Pantoprazole Sodium (Pantoprazole 40 Mg Tablet) 40 mg PO AC-BRKFST [facility] Last Admin: 05/07/21 08:48 Dose: 40 mg Documented by: Physical Exam: Gen: This is a 70-year-old male who is awake, alert and oriented 3, well- developed, well-nourished. Temp is 99.4 F, pulse is 72, respirations are 18, blood pressure is 159/79, oxygen saturation is 94% on room air HEENT: Head is atraumatic, normocephalic. Pupils equal, round. Sclerae is anicteric. NECK: Supple. No JVD. No lymphadenopathy. No thyromegaly. LUNGS: Diminished breath sounds bilaterally with no wheezing or rhonchi noted. No intercostal retractions. HEART: S1, S2 are muffled ABDOMEN: Soft. Obese. Bowel sounds are present. No masses. No tenderness. EXTREMITIES: No pedal edema. No calf tenderness. Right lower extremity redness and swelling with some slight improvement noted NEUROLOGICAL: Patient is awake, alert and oriented x3. Cranial nerves 2 through 12 are grossly intact. Assessment: Acute on chronic right foot infection with cellulitis with failed outpatient treatment Ruled out osteomyelitis History of chronic right foot wound and skin graft History of deep vein thrombosis Gastroesophageal reflux disease hypertension hyperlipidemia History of pulmonary embolism History of peripheral neuropathy History of hiatal hernia History of chronic constipation History of back surgery Remote history of nicotine dependence Obesity with a BMI of 31.5 Plan: Recommend to continue with current medications and management. Pain is controlled today. Patient is currently maintained on IV vancomycin and cefepime. Infectious disease following. Awaiting cultures to finalize. Patient underwent bone scan which is consistent with cellulitis. Venous doppler of the right lower extremity is negative for DVT. Continue local wound care. Encouraged the patient elevate lower extremity while at rest. Encourage increased activity as tolerated. Will repeat am labs and continue to monitor closely. Due to multiple complex medical issues, prognosis is guarded. Further recommendations to follow based on the clinical course of the patient. Discussed further with infectious disease and possible case management if patient will require IV antibiotic therapy and discharge. Objective - Vital Signs Vital signs: Vital Signs Temp 98.2 F 05/07/21 05:00 Pulse 74 05/07/21 05:00 Resp 16 05/07/21 05:00 BP 124/69 05/07/21 05:00 Pulse Ox 96 05/07/21 05:00 Intake & Output 05/06/21 05/07/21 05/07/21 18:59 06:59 18:59 Intake Total 600 Balance 600 Weight 105.233 kg Intake: Intake, IV Titration 600 Amount Cefepime 2 gm In Sodium 100 Chloride 0.9% 100 ml @ 25 mls/hr IVPB Q8H [facility] Rx#: [id number] Vancomycin 1,750 mg In 500 Sodium Chloride 0.9% 500 ml 500 ml @ 167 mls/hr IVPB Q12H [facility] Rx#: [id number] Other: Voiding Method Toilet # Voids 1 4 - Labs CBC & Chem 7: 05/07/21 04:55 05/07/21 04:55 Labs: Abnormal Lab Results - Last 24 Hours (Table) 05/07/21 05/07/21 Range/Units 04:55 04:55 RBC 4.11 L (4.30-5.90) m/uL Hgb 12.5 L (13.0-17.5) gm/dL Hct 38.2 L (39.0-53.0) % Chloride 109 H (98-107) mmol/L Glucose 108 H (74-99) mg/dL Microbiology - Last 24 Hours (Table) 05/05/21 14:47 Blood Culture - Preliminary Blood No Growth after 24 hours 05/05/21 14:47 Gram Stain - Preliminary Foot - Right Wound Culture - Preliminary
[2021-05-07] MEDS: HYDROcodone/APAP 7.5-325MG 1 EACH TAB PO PRN (20:06)
--- NOTE | 2021-05-07 23:20 | PN ---
PROGRESS NOTE DATE OF SERVICE: 05/07/2021 REASON FOR FOLLOWUP: Right lower extremity cellulitis. INTERVAL HISTORY: The patient is afebrile, breathing comfortably. Denies any chest pain, shortness of breath or cough. No abdominal pain. Overall swelling and redness of the right leg have decreased. PHYSICAL EXAMINATION: Blood pressure is 159/79, pulse of 78, temperature is 98.4. He is 95% on room air. General description is an elderly male up in the room in no distress. Respiratory system: Unlabored breathing. Clear to auscultation. Heart S1, S2. Regular rate and rhythm. Abdomen soft, no tenderness. Right leg swelling and redness has decreased. LABS: White count is 5.8, creatinine 0.86. Wound culture with Staph epidermidis. DIAGNOSTIC IMPRESSION AND PLAN: Patient with right leg wound and cellulitis. Patient clinically responded to cefepime and vancomycin. Patient does have PENICILLIN AND SULFA ALLERGY. Culture with Staph epi, possibly skin syed, though sensitive to . Will give the patient antibiotic for another 24 hours before transitioning to oral antibiotics. Continue with supportive care. MMODL / IJN: [id number] /
[2021-05-08] MEDS: CEFEPIME 2 GM in SODIUM CHLORIDE 0.9% 100 ML IVPB SCH ×3 (01:13→18:17)
[2021-05-08] MEDS: VANCOMYCIN 1,750 MG in SODIUM CHLORIDE 0.9% 500 ML 500 ML IVPB SCH ×2 (04:22→14:49)
[2021-05-08 06:54] LABS: African American GFR (CKD) >90 (>60 ml/min/1.73 sqM); Non-African American GFR(CKD) 87 (>60 ml/min/1.73 sqM)
[2021-05-08] MEDS ORDERED: oxyCODONE-APAP 10-325MG 1 EACH TAB PO PRN (07:25)
[2021-05-08] MEDS ORDERED: polyethylene glycoL 3350 17 GM POWD.PACK PO PRN (07:25)
[2021-05-08] MEDS ORDERED: PANTOPRAZOLE 40 MG TABLET PO SCH (09:00)
[2021-05-08] MEDS: GABAPENTIN 300 MG CAP PO SCH ×3 (09:04→21:10)
[2021-05-08] MEDS: amLODIPine 10 MG TAB PO SCH (09:04)
[2021-05-08] MEDS: PANTOPRAZOLE 40 MG TABLET PO SCH (09:04)
[2021-05-08] MEDS: ENOXAPARIN 40 MG/0.4 ML SYRINGE SQ SCH (09:04)
[2021-05-08] MEDS: ATORVASTATIN 20 MG TAB PO SCH (09:04)
--- NOTE | 2021-05-08 22:51 | P.PN ---
Subjective Progress Note Date: 05/08/21 This is a 70-year-old male who was recently admitted for right heel pain and increasing redness and drainage and is being closely monitored. Patient underwent bone scan today which is consistent with cellulitis. Patient is currently on IV cefepime and vancomycin and infectious disease is following. Patient continues to have right foot discomfort and will adjust pain medications. Patient preliminary cultures showing multiple organisms and will await finalized cultures. Patient denies any chest pain or shortness of breath. Patient is afebrile. 2020 Patient is seen in follow-up this morning and being closely monitored. Patient continues on IV cefepime along with vancomycin and infectious disease is following closely. Blood cultures remain negative and preliminary wound culture showing few budding yeast along with moderate gram by positive cocci and multiple morphologies present and awaiting for finalization determine discharge antibiotics. Patient continues with right lower extremity redness and swelling and bandadge is dry and intact. Patient states the redness and swelling has decreased and patient currently has the right lower extremity elevated on a pillow. Patient to continue to elevate while at rest. Patient denies any chest pain, shortness of breath, or palpitations. Patient is afebrile. Patient tolerating diet with no reports of nausea or vomiting noted. Patient states he has had IV antibiotic therapy in the outpatient setting previously and follows with the wound care center and will discuss with case management along with infectious disease about discharge planning and if patient will be requiring IV antibiotic therapy. 05/08/2021 Patient is seen this morning and maintained on cefepime and vancomycin with infectious disease following. Patient has some improvement in the redness and swelling of the right lower extremity although continues with discomfort and drainage noted of the foot. Patient to continue another 24 hours of IV antibiotics and await cultures. Patient has multiple antibiotic allergies and has recently failed outpatient therapy on 2 medications. Patient to continue with local wound care and non-weightbearing to the right lower extremity. Labs: creatinine is 0.90 Review of systems: Constitutional: No reports of fatigue, fever, or chills Cardiovascular: No reports of chest pain or palpitations Respiratory: No reports of shortness of breath or cough GI: No reports of nausea, vomiting, or diarrhea : No reports of dysuria or retention Neurovascular: No reports of weakness or numbness, reports right foot pain and drainage that continues All medications have been reviewed Active Medications Hydrocodone Bitart/Acetaminophen (Hydrocodone/Apap 7.5-325mg 1 Each Tab) 1 each PO Q6HR PRN PRN Reason: Moderate Pain Last Admin: 05/07/21 20:06 Dose: 1 each Documented by: Amlodipine Besylate (Amlodipine 10 Mg Tab) 10 mg PO DAILY [facility] Last Admin: 05/08/21 09:04 Dose: 10 mg Documented by: Atorvastatin Calcium (Atorvastatin 20 Mg Tab) 20 mg PO DAILY [facility] Last Admin: 05/08/21 09:04 Dose: 20 mg Documented by: Enoxaparin Sodium (Enoxaparin 40 Mg/0.4 Ml Syringe) 40 mg SQ DAILY [facility] Last Admin: 05/08/21 09:04 Dose: 40 mg Documented by: Gabapentin (Gabapentin 300 Mg Cap) 300 mg PO TID [facility] Last Admin: 05/08/21 21:10 Dose: 300 mg Documented by: Hydromorphone HCl (Hydromorphone 0.5 Mg/0.5 Ml Syringe) 0.5 mg IVP Q4H PRN PRN Reason: Severe Pain Vancomycin HCl 1,750 mg/ (Sodium Chloride) 500 mls @ 167 mls/hr IVPB Q12H [facility] Last Admin: 05/08/21 14:49 Dose: 167 mls/hr Documented by: Cefepime HCl 2 gm/ Sodium (Chloride) 100 mls @ 25 mls/hr IVPB Q8H [facility] Last Admin: 05/08/21 18:17 Dose: 25 mls/hr Documented by: Pantoprazole Sodium (Pantoprazole 40 Mg Tablet) 40 mg PO AC-BRKFST [facility] Last Admin: 05/08/21 09:04 Dose: 40 mg Documented by: Polyethylene Glycol (Polyethylene Glycol 3350 17 Gm Powd.Pack) 17 gm PO DAILY PRN PRN Reason: Constipation Physical Exam: Gen: This is a 70-year-old male who is awake, alert and oriented 3, well- developed, well-nourished. Temp is 98.4 F, pulse is 70, respirations are 15, blood pressure is 167/87, oxygen saturation is 96% on room air HEENT: Head is atraumatic, normocephalic. Pupils equal, round. Sclerae is anicteric. NECK: Supple. No JVD. No lymphadenopathy. No thyromegaly. LUNGS: Diminished breath sounds bilaterally with no wheezing or rhonchi noted. No intercostal retractions. HEART: S1, S2 are muffled ABDOMEN: Soft. Obese. Bowel sounds are present. No masses. No tenderness. EXTREMITIES: No pedal edema. No calf tenderness. Right lower extremity redness and swelling with continued improvement noted NEUROLOGICAL: Patient is awake, alert and oriented x3. Cranial nerves 2 through 12 are grossly intact. Assessment: Acute on chronic right foot infection with cellulitis with failed outpatient kristopher atment Ruled out osteomyelitis History of chronic right foot wound and skin graft History of deep vein thrombosis Gastroesophageal reflux disease hypertension hyperlipidemia History of pulmonary embolism History of peripheral neuropathy History of hiatal hernia History of chronic constipation History of back surgery Remote history of nicotine dependence Obesity with a BMI of 31.5 Plan: Recommend to continue with current medications and management. Pain is controlled today. Patient is up and walking and recommend non-weightbearing to the right lower extremity. Patient is currently maintained on IV vancomycin and cefepime. Infectious disease following. Awaiting cultures to finalize. Cultures showing homero species/ not albicans and staph epidermidis and will discuss with ID about discharge antibiotic recommendations given his extensive antibiotic allergy and failed outpatient treatment. Continue local wound care. Encouraged the patient elevate lower extremity while at rest. Encourage increased activity as tolerated. Will repeat am labs and continue to monitor closely. Due to multiple complex medical issues, prognosis is guarded. Further recommendations to follow based on the clinical course of the patient. Possible discharge in 24 hours. Objective - Vital Signs Vital signs: Vital Signs Temp 98.4 F 05/08/21 07:05 Pulse 70 05/08/21 07:05 Resp 15 05/08/21 07:05 BP 167/87 05/08/21 07:05 Pulse Ox 96 05/08/21 07:05 Intake & Output 05/07/21 05/08/21 05/08/21 18:59 06:59 18:59 Other: Voiding Method Toilet Toilet # Voids 3 - Labs CBC & Chem 7: 05/07/21 04:55 05/08/21 06:08 Labs: Microbiology - Last 24 Hours (Table) 05/05/21 14:47 Gram Stain - Preliminary Foot - Right Wound Culture - Preliminary Staphylococcus epidermidis 05/05/21 14:47 Blood Culture - Preliminary Blood No Growth after 48 hours
[2021-05-09] MEDS: CEFEPIME 2 GM in SODIUM CHLORIDE 0.9% 100 ML IVPB SCH ×2 (02:09→09:45)
--- NOTE | 2021-05-09 02:10 | PN ---
PROGRESS NOTE DATE OF SERVICE: 05/08/2021 REASON FOR FOLLOWUP: Right lower extremity cellulitis. INTERVAL HISTORY: The patient is afebrile. The patient is breathing comfortably. The patient denies having any chest pain. No shortness of breath or cough. No abdominal pain. Overall pain, swelling and redness of right leg has decreased in intensity. PHYSICAL EXAMINATION: Blood pressure 150/72 with a pulse of 75, temperature 99. He is 98% on room air. General description is an elderly male lying in bed in no distress. Respiratory system: Unlabored breathing, clear to auscultation anteriorly. Heart S1, S2. Regular rate and rhythm. Abdomen soft, no tenderness. Right leg swelling and redness has improved. DIAGNOSTIC IMPRESSION AND PLAN: Patient with acute right lower extremity cellulitis that has shown overall clinical improvement on cefepime and vancomycin, to continue: Will transition to oral antibiotics. Continue supportive care. MMODL / IJN: [id number] /
[2021-05-09] MEDS: VANCOMYCIN 1,750 MG in SODIUM CHLORIDE 0.9% 500 ML 500 ML IVPB SCH ×2 (03:29→16:06)
[2021-05-09 05:17] LABS: African American GFR (CKD) >90 (>60 ml/min/1.73 sqM); Anion Gap 8 mmol/L; Blood Urea Nitrogen 18 mg/dL (9-20); Calcium 8.9 mg/dL (8.4-10.2); Carbon Dioxide 23 mmol/L (22-30); Chloride 108 mmol/L (98-107); Glucose 148 mg/dL (74-99); Non-African American GFR(CKD) 89 (>60 ml/min/1.73 sqM); Potassium 4.4 mmol/L (3.5-5.1); Sodium 139 mmol/L (137-145)
[2021-05-09 07:52] VITALS: RESP 18
[2021-05-09] MEDS: PANTOPRAZOLE 40 MG TABLET PO SCH (08:20)
[2021-05-09] MEDS: amLODIPine 10 MG TAB PO SCH (08:20)
[2021-05-09] MEDS: ENOXAPARIN 40 MG/0.4 ML SYRINGE SQ SCH (08:21)
[2021-05-09] MEDS: ATORVASTATIN 20 MG TAB PO SCH (08:21)
[2021-05-09] MEDS: GABAPENTIN 300 MG CAP PO SCH ×2 (08:21→15:45)
[2021-05-09 15:56] VITALS: BP 175/90; PULSE 85; TEMP 99
--- NOTE | 2021-05-09 19:23 | PN ---
PROGRESS NOTE DATE OF SERVICE: 05/09/2021 REASON FOR FOLLOWUP: Right lower extremity cellulitis. INTERVAL HISTORY: The patient was seen on rounds early this evening. The patient is afebrile. The patient is breathing comfortably. No chest pain, shortness of breath or cough. No abdominal pain. Overall swelling, redness and drainage has decreased. PHYSICAL EXAMINATION: Blood pressure is /90 with a pulse of 85, temperature 99. He is 97% on room air. General description is an elderly male up in the chair in no distress. On examination of right lower extremity, swelling and redness has decreased. Minimal wound on the right heel area. No significant drainage. LABS: Creatinine 0.87. DIAGNOSTIC IMPRESSION AND PLAN: Patient with right lower extremity wound with secondary cellulitis. Culture with Staphylococcus epidermidis and Xiomy, more likely skin syed. Overall improvement on cefepime and vancomycin. Possibly streptococcal disease. Will finish therapy with oral Keflex and doxycycline. Prescription was sent to pharmacy. Local wound care with dry Aquacel Silver dressing. Will re-evaluate the patient in the office in a week. MMODL / IJN: [id number] /
--- NOTE | 2021-05-14 12:05 | P.DS ---
Providers Date of admission: 05/05/21 16:15 Expected date of discharge: 05/09/21 Attending physician: Roseanna Roth Consults: 05/05/21 16:00 Consult Physician Routine Consulting Provider: Ross Singletary Consult Reason/Comments: cellulitis Do you want consulting provider notified?: Yes Primary care physician: Vicky Singh [facility] Course: Final diagnosis Acute on chronic right foot infection with cellulitis with failed outpatient treatment Ruled out osteomyelitis History of chronic right foot wound and skin graft History of deep vein thrombosis Gastroesophageal reflux disease hypertension hyperlipidemia History of pulmonary embolism History of peripheral neuropathy History of hiatal hernia History of chronic constipation History of back surgery Remote history of nicotine dependence Obesity with a BMI of 31.5 Discharge disposition Patient is being discharged in a stable condition with guarded prognosis to home. Patient will follow-up with Dr. Singh in the outpatient setting upon discharge. Patient to also follow up with Dr. Singletary in one week. Patient to continue oral keflex and doxycycline for 10 days to complete the course. Total time taken is greater than 35 minutes. Hospital course This is a 70 year old male who was admitted with right foot infection and cellulitis. Patient was followed closely with Dr. Singletary ID and will continue on oral keflex and doxycycline in the outpatient and local wound care as mentioned below. Patient to follow at the wound care center with Dr. singletary in one week. Patient requesting to go home. Currently no reports of chest pain, palpitations, or shortness of breath. Patient is afebrile. No reports of nausea or vomiting noted. Patient tolerating diet. Patient will be discharged home today. Physical examination: Gen: This is a 70-year-old male who is awake, alert and oriented 3, well- developed, well-nourished. HEENT: Head is atraumatic, normocephalic. Pupils equal, round. Sclerae is anicteric. NECK: Supple. No JVD. No lymphadenopathy. No thyromegaly. LUNGS: Diminished breath sounds bilaterally with no wheezing or rhonchi noted. No intercostal retractions. HEART: S1, S2 are muffled ABDOMEN: Soft. Obese. Bowel sounds are present. No masses. No tenderness. EXTREMITIES: No pedal edema. No calf tenderness. Right lower extremity redness and swelling with continued improvement noted NEUROLOGICAL: Patient is awake, alert and oriented x3. Cranial nerves 2 through 12 are grossly intact. Please refer to medication reconciliation sheet for a list of medications. Patient Condition at Discharge: Stable Plan - Discharge Summary Discharge Rx Participant: No New Discharge Prescriptions: New Doxycycline [Vibramycin] 100 mg PO BID 10 Days #20 capsule Cephalexin [Keflex] 500 mg PO Q6HR 10 Days #40 cap Continue amLODIPine BESYLATE [Norvasc] 10 mg PO DAILY Atorvastatin [Lipitor] 20 mg PO DAILY Aspirin 325 mg PO DAILY lisinopriL [Prinivil] 20 mg PO DAILY Pantoprazole Sodium 40 mg PO DAILY Gabapentin [Neurontin] 300 mg PO TID oxyCODONE-APAP 10-325MG [Percocet 10-325 mg] 1 tab PO TID PRN PRN Reason: Pain Naproxen Sodium [Aleve] 220 mg PO Q12H PRN PRN Reason: Pain polyethylene glycoL 3350 [Miralax] 17 gm PO DAILY PRN PRN Reason: Constipation Multivit-Min/FA/Lycopen/Lutein [Centrum Silver Men Tablet] 1 tab PO DAILY Discontinued Doxycycline Hyclate 100 mg PO BID Cephalexin [Keflex] 500 mg PO QID Discharge Medication List Atorvastatin [Lipitor] 20 mg PO DAILY 09/20/13 [History] amLODIPine BESYLATE [Norvasc] 10 mg PO DAILY 09/20/13 [History] Aspirin 325 mg PO DAILY 12/05/14 [History] lisinopriL [Prinivil] 20 mg PO DAILY 12/05/14 [History] Pantoprazole Sodium 40 mg PO DAILY 03/05/16 [History] Gabapentin [Neurontin] 300 mg PO TID 09/06/16 [History] Multivit-Min/FA/Lycopen/Lutein [Centrum Silver Men Tablet] 1 tab PO DAILY 05/05/21 [History] Naproxen Sodium [Aleve] 220 mg PO Q12H PRN 05/05/21 [History] oxyCODONE-APAP 10-325MG [Percocet 10-325 mg] 1 tab PO TID PRN 05/05/21 [History] polyethylene glycoL 3350 [Miralax] 17 gm PO DAILY PRN 05/05/21 [History] Cephalexin [Keflex] 500 mg PO Q6HR 10 Days #40 cap 05/09/21 [Rx] Doxycycline [Vibramycin] 100 mg PO BID 10 Days #20 capsule 05/09/21 [Rx] Follow up Appointment(s)/Referral(s): Vicky Singh III, MD [Primary Care Provider] - 1-2 days Ross Singletary MD [STAFF PHYSICIAN] - 1 Week Ambulatory/Diagnostic Orders: Complete Blood Count w/diff [LAB.AMB] Time Frame: 3 Days, Location: None Selected Activity/Diet/Wound Care/Special Instructions: Activity Limited until follow-up Follow-up primary care provider on discharge Continue current medications Continue antibiotic therapy per ID recommendations Follow-up with wound care center with Dr. Singletary, call [phone] to make an appointment Continue with local wound care aquacel silver dressing , change q48hr Discharge Disposition: HOME SELF-CARE
== END 2021-05-09 17:25 | disposition home or self-care (01) | DRG 603 ==
LOC: EC 12:11 → 5NMEDONC 16:15 → 3NCARDOBS 05-06 07:35 → 6NMEDSUR 05-07 10:01
PROVIDERS: ADMIT Hospitalist; ATTEND Hospitalist
DX: L03.115 Cellulitis of right lower limb (principal); E66.9 Obesity, unspecified; Z68.31 Body mass index [BMI] 31.0-31.9, adult; M54.31 Sciatica, right side; G89.29 Other chronic pain; Z20.822 Contact with and (suspected) exposure to COVID-19; K59.09 Other constipation; E78.5 Hyperlipidemia, unspecified; T14.90XS Injury, unspecified, sequela; G62.9 Polyneuropathy, unspecified; I10 Essential (primary) hypertension; K21.9 Gastro-esophageal reflux disease without esophagitis; H26.9 Unspecified cataract; K57.90 Diverticulosis of intestine, part unspecified, without perforation or abscess without bleeding; Z79.02 Long term (current) use of antithrombotics/antiplatelets; Z79.82 Long term (current) use of aspirin; Z79.899 Other long term (current) drug therapy; Z82.0 Family history of epilepsy and other diseases of the nervous system; Z82.49 Family history of ischemic heart disease and other diseases of the circulatory system; Z85.828 Personal history of other malignant neoplasm of skin; Z86.711 Personal history of pulmonary embolism; Z86.718 Personal history of other venous thrombosis and embolism; Z86.010 Personal history of colon polyps; Z82.61 Family history of arthritis; Z87.891 Personal history of nicotine dependence; Z88.0 Allergy status to penicillin; Z88.2 Allergy status to sulfonamides; Z98.890 Other specified postprocedural states
CPT/HCPCS: 36415; 78315; 80048; 80202; 82565; 83605; 85025; 87040; 87070; 87077; 87186; 87205; 87635; 96365; 99284

== ENCOUNTER 2023-08-02 11:06 | Day surgery (SDC) | payer MEDICARE ==
[2023-08-01 08:49] VITALS: BMI 32.5
[2023-08-02 11:47] VITALS: TEMP 98.5
[2023-08-02] MEDS: LACTATED RINGERS 1,000 ML IV SCH (11:56)
[2023-08-02] MEDS ORDERED: LIDOCAINE 1% INJ 10MG/ML (20 ML MDV) ONE (12:01)
[2023-08-02] MEDS ORDERED: PROPOFOL 10 MG/ML 20 ML VIAL IV ONE (12:01)
--- NOTE | 2023-08-02 12:09 | P.GSHP ---
History of Present Illness H&P Date: 08/02/23 Chief Complaint: Colon cancer screening 72-year-old male here for colonoscopy. Last colonoscopy 7 years ago. Patient had a small hyperplastic polyp at that time. Patient describes chronic constipation. No family history of colon cancer. No rectal bleeding. Past Medical History Past Medical History: Cancer, Deep Vein Thrombosis (DVT), Eye Disorder, GERD/Reflux, Hyperlipidemia, Hypertension, Osteoarthritis (OA), Pulmonary Embolu s (PE), Skin Disorder, Vascular Disorder Additional Past Medical History / Comment(s): Chronic R heel wound/infection, neuropathy R lower leg, PAD, bilateral leg DVTs, bilateral lung PEs, hiatal hernia, chronic constipation, diverticular disease, benign colon polyps, chronic low back pain/past sciatica mostly on R side, starting of cataracts bilaterally. face cancer burned off History of Any Multi-Drug Resistant Organisms: None Reported Past Surgical History: Back Surgery, Heart Catheterization, Orthopedic Surgery Additional Past Surgical History / Comment(s): Skin cancer removals, lumbar fusion/rods then rods removed, laminectomy lumbar spine, R patella fracture with surgery, bilateral heel bone removals-1/2 L heelbone removed and most of R heel bone removed, R foot flap grafts x 3 d/t rejections/successful graft with donor site R calf, bilateral feet numerous I&Ds, aortic arch angiogram/stent to L subclavian, R groin stent, colonoscopies/benign polypectomies. Past Anesthesia/Blood Transfusion Reactions: No Reported Reaction Additional Past Anesthesia/Blood Transfusion Reaction / Comment(s): no blood transfusion . Smoking Status: Former smoker - Past Family History Mother Family Medical History: Osteoarthritis (OA) Additional Family Medical History / Comment(s): BACK PROBLEMS, ALZHEIMER'S Father Family Medical History: Cancer, Coronary Artery Disease (CAD), Thyroid Disorder Medications and Allergies Home Medications Medication Instructions Recorded Confirmed Type Atorvastatin [Lipitor] 20 mg PO DAILY 09/20/13 08/02/23 History amLODIPine BESYLATE [Norvasc] 10 mg PO DAILY 09/20/13 08/02/23 History Aspirin 325 mg PO DAILY 12/05/14 08/02/23 History lisinopriL [Prinivil] 20 mg PO DAILY 12/05/14 08/02/23 History Pantoprazole Sodium 40 mg PO DAILY 03/05/16 08/02/23 History Gabapentin [Neurontin] 300 mg PO TID 09/06/16 08/02/23 History Naproxen Sodium [Aleve] 220 mg PO Q12H PRN 05/05/21 08/01/23 History oxyCODONE-APAP 10-325MG [Percocet 1 tab PO TID PRN 05/05/21 08/02/23 History 10-325 mg] polyethylene glycoL 3350 [Miralax] 17 gm PO DAILY PRN 05/05/21 08/02/23 History Allergies Allergy/AdvReac Type Severity Reaction Status Date / Time Penicillins Allergy Rash/Hives Verified 08/02/23 11:32 sulfamethoxazole Allergy PALPITATION Verified 08/02/23 11:32 [From Bactrim] S trimethoprim [From Bactrim] Allergy PALPITATION Verified 08/02/23 11:32 S Surgical - Exam Vital Signs Temp Pulse Resp BP Pulse Ox 98.5 F 88 18 127/71 96 08/02/23 11:44 08/02/23 11:44 08/02/23 11:44 08/02/23 11:44 08/02/23 11:44 Physical exam: General: Well-developed, well-nourished HEENT: Normocephalic, sclerae nonicteric Abdomen: Nontender, nondistended Extremities: No edema Neuro: Alert and oriented Assessment and Plan (1) Colon cancer screening Narrative/Plan: Will proceed with colonoscopy at this time. Current Visit: Yes Status: Acute Code(s): Z12.11 - ENCOUNTER FOR SCREENING FOR MALIGNANT NEOPLASM OF COLON SNOMED Code(s): 890508578
--- NOTE | 2023-08-02 12:27 | P.PCN ---
Date of Procedure: 08/02/23 Procedure(s) Performed: PREOPERATIVE DIAGNOSIS: Colon cancer screening POSTOPERATIVE DIAGNOSIS: Normal exam, suboptimal prep PROCEDURE: Colonoscopy ANESTHESIA: MAC SURGEON: Steve Mayorga M.D. SPECIMENS: None ENDOSCOPIC PROCEDURE: The patient was placed on the endoscopy table in the left decubitus position. The Olympus colonoscope was inserted into the anus and passed under direct visualization to the base of the cecum. The appendiceal orifice was visualized. From that point the scope was slowly withdrawn inspecting all surfaces carefully. There were no neoplastic inflammatory or polypoid lesions throughout the cecum, ascending, transverse, descending, sigmoid and rectum. There was no visible diverticulosis noted. The patient's prep was slightly suboptimal. Digital rectal examination was normal. The patient was taken to the recovery room in stable condition per anesthesia guidelines. RECOMMENDATIONS: Resume diet. Repeat colonoscopy 10 years. Continue stool softeners.
[2023-08-02 12:57] VITALS: BP 125/83; PULSE 74; RESP 16
== END 2023-08-02 13:12 | disposition home or self-care (01) ==
LOC: ORWHC2ENDO 11:06
PROVIDERS: ATTEND Surgery
DX: Z12.11 Encounter for screening for malignant neoplasm of colon (principal); K21.9 Gastro-esophageal reflux disease without esophagitis; I10 Essential (primary) hypertension; E78.5 Hyperlipidemia, unspecified; I73.9 Peripheral vascular disease, unspecified; M19.90 Unspecified osteoarthritis, unspecified site; G62.9 Polyneuropathy, unspecified; G89.29 Other chronic pain; Z98.890 Other specified postprocedural states; Z86.711 Personal history of pulmonary embolism; Z87.891 Personal history of nicotine dependence; Z82.61 Family history of arthritis; Z83.49 Family history of other endocrine, nutritional and metabolic diseases; Z86.718 Personal history of other venous thrombosis and embolism; Z79.82 Long term (current) use of aspirin; Z79.899 Other long term (current) drug therapy; Z88.2 Allergy status to sulfonamides; Z88.0 Allergy status to penicillin; Z88.1 Allergy status to other antibiotic agents; Z95.5 Presence of coronary angioplasty implant and graft
CPT/HCPCS: J2001; J2704; G0121